=== PATIENT | female | born 1950 | race Caucasian/White ===

== ENCOUNTER 2018-09-29 17:08 | Emergency (ER) | payer OTHER ==
[~2018-09-29] VITALS: Ht 175.3 cm; Wt 86.2 kg
[2018-09-29] MEDS ORDERED: ONDA4ODT MM (18:18)
[2018-09-29] MEDS ORDERED: Roxicodone5 MG PO (18:18)
== END 2018-09-29 19:31 | disposition home or self-care (01) ==
LOC: ER 17:08
DX: S42.212A Unspecified displaced fracture of surgical neck of left humerus, initial encounter for closed fracture (principal); W01.198A Fall on same level from slipping, tripping and stumbling with subsequent striking against other object, initial encounter
CPT/HCPCS: 29105; 73060; 96372; 99283-25; J3010